=== PATIENT | male | born 1965 | race Two or more races ===

== ENCOUNTER 2017-02-25 22:12 | Inpatient (IN) | payer MEDICAID ==
[~2017-02-25] VITALS: Ht 167.6 cm; Wt 89.8 kg
[2017-02-25 23:41] LABS: Basophils # (auto) 0 uL; Basophils % (auto) 0.5 % (0.0-2.0); Eosinophils # (auto) 0.3 uL; Eosinophils % (auto) 3.5 % (0.0-7.0); Hematocrit 46.3 % (41.0-53.0); Hemoglobin 15.2 g/dL (13.5-17.5); Lymphocytes # (auto) 3.3 uL; Lymphocytes % (auto) 37.7 % (10.0-50.0); Mean Corpuscular Hemoglobin 28.2 pg (28.0-32.0); Mean Corpuscular Hgb Conc. 32.9 g/dL (32.0-36.0); Mean Corpuscular Volume 85.9 fL (80.0-100.0); Mean Platelet Volume 8.8 fL (7.4-10.4); Monocytes # (auto) 0.8 uL; Monocytes % (auto) 8.9 % (0.0-12.0); Neutrophils # (auto) 4.3 uL; Neutrophils % (auto) 49.4 % (37.0-80.0); Platelet Count (auto) 273 10^3/uL (140-450); Red Cell Distribution Width 12.4 % (11.6-16.0); White Blood Cell 8.8 10^3/uL (4.4-10.8)
[2017-02-26 00:02] LABS: INR 0.99 (0.9-1.15); Partial Thromboplastin Time 27.9 sec (22.64-33.71); Prothrombin Time 10.7 sec (9.37-12.3)
[2017-02-26 00:41] LABS: Chloride 104 mmol/L (98-107); Potassium 3.9 mmol/L (3.5-5.1); Sodium 141 mmol/L (136-145)
[2017-02-26 00:42] LABS: Albumin 4.2 g/dL (3.4-5.0); Alkaline Phosphatase 81 U/L (45-117); Anion Gap 8 (5-15); Aspartate Aminotransferase 20 U/L (15-37); BUN/Creatinine Ratio 16.7; Bilirubin, Total 0.5 mg/dL (0.2-1.0); Blood Urea Nitrogen 17 mg/dL (7-18); Calcium 8.7 mg/dL (8.5-10.1); Carbon Dioxide 29 mmol/L (21-32); GFR African American 98 mL/min; GFR Non-African American 81 mL/min; Glucose 106 mg/dL (74-106); Total Protein 7.2 g/dL (6.4-8.2)
[2017-02-26 00:43] LABS: Magnesium 2.5 mg/dL (1.6-2.6)
[2017-02-26] MEDS ORDERED: ASPI-231 PO (04:00)
[2017-02-26] MEDS ORDERED: ASPirin-EC 325mg tab PO ONE (04:00)
[2017-02-26] MEDS ORDERED: NITROGLYCERIN 0.2MG/HR TOPICAL PATCH TD ONE (04:00)
[2017-02-26] MEDS ORDERED: METF-312 PO (04:00)
[2017-02-26] MEDS ORDERED: CLOP75TA28 PO (04:00)
[2017-02-26] MEDS ORDERED: LISI2.5T47 PO (04:00)
[2017-02-26 04:35] LABS: Urine RBC None Seen /hpf (0 - 3)
[2017-02-26 05:36] LABS: Urine Bilirubin Negative (Negative); Urine Blood Negative /uL (Negative); Urine Color Yellow (Yellow); Urine Glucose Normal (Normal); Urine Ketone Negative (Negative); Urine Nitrite Negative (Negative); Urine Urobilinogen Normal (Negative); Urine pH 5.5 (5.0-8.0)
[2017-02-26] MEDS ORDERED: DEXTROSE (50%) 50ML SYRG IV PRN (08:45)
[2017-02-26] MEDS ORDERED: LORazepam 0.5 MG TAB PO PRN (08:45)
[2017-02-26] MEDS ORDERED: MORPHINE SULF INJ 2 MG/ML SYRINGE 1ML IV PRN ×2 (08:45)
[2017-02-26] MEDS ORDERED: LACTULOSE 20Gm/30ML SOLN PO PRN (08:45)
[2017-02-26] MEDS ORDERED: TEMAZEPAM 15 MG CAP PO PRN (08:45)
[2017-02-26] MEDS ORDERED: NITROGLYCERIN 0.4 MG SL TAB SL PRN (08:45)
[2017-02-26] MEDS ORDERED: HYDROcodone-ACET 5/325MG TAB PO PRN (08:45)
[2017-02-26] MEDS ORDERED: ACETAMINOPHEN 500 MG TAB PO PRN (08:45)
[2017-02-26] MEDS ORDERED: PROCHLORPERAZINE EDISYLATE 5 MG/ML 2ML VIAL IV PRN (08:45)
[2017-02-26] MEDS: NITROGLYCERIN 0.2MG/HR TOPICAL PATCH TD SCH (09:52)
[2017-02-26] MEDS ORDERED: ENOXAPARIN SOD 40 MG/0.4 ML SYRINGE SC SCH (10:00)
[2017-02-26] MEDS ORDERED: LISINOPRIL 5 MG TAB PO SCH (10:00)
[2017-02-26] MEDS ORDERED: LISINOPRIL PO SCH (10:00)
[2017-02-26] MEDS: PANTOPRAZOLE 40 MG TAB PO SCH (10:30)
[2017-02-26] MEDS: SODIUM CHLORIDE 0.9% 1,000 ML IV SCH ×2 (10:30→23:08)
[2017-02-26] MEDS: CLOPIDOGREL BISULFATE 75 MG TAB PO SCH (10:30)
[2017-02-26] MEDS: ASPirin-EC 81 mg tab PO SCH (10:30)
[2017-02-26] MEDS: LISINOPRIL 5 MG TAB PO SCH (10:30)
[2017-02-26] MEDS: ACCU-CHEK COMFORT CURVE STRIP VI SCH ×3 (11:47→22:58)
[2017-02-26] MEDS: InsuLIN REG 1unit/0.01ml Soln (100units/ml) SC SCH ×3 (11:49→22:58)
[2017-02-26] MEDS ORDERED: CARV3.1240 PO (18:18)
[2017-02-26 20:00] VITALS: BP 105/58
[2017-02-26 21:59] VITALS: BP 105/58
[2017-02-26] MEDS: ATORVASTATIN 20 MG TAB PO SCH (22:58)
[2017-02-27 05:08] VITALS: BP 112/61
[2017-02-27] MEDS: ACCU-CHEK COMFORT CURVE STRIP VI SCH ×4 (05:58→22:09)
[2017-02-27] MEDS: InsuLIN REG 1unit/0.01ml Soln (100units/ml) SC SCH ×4 (05:58→22:00)
[2017-02-27 08:29] LABS: Albumin 3.7 g/dL (3.4-5.0); BUN/Creatinine Ratio 13.8; Bilirubin, Total 1.1 mg/dL (0.2-1.0); Calcium 9.1 mg/dL (8.5-10.1); Potassium 3.9 mmol/L (3.5-5.1)
[2017-02-27 09:17] VITALS: BP 112/72
[2017-02-27] MEDS: NITROGLYCERIN 0.2MG/HR TOPICAL PATCH TD SCH (10:00)
[2017-02-27] MEDS: ASPirin-EC 81 mg tab PO SCH (10:00)
[2017-02-27] MEDS: LISINOPRIL 5 MG TAB PO SCH (10:00)
[2017-02-27] MEDS: PANTOPRAZOLE 40 MG TAB PO SCH (10:00)
[2017-02-27] MEDS: CLOPIDOGREL BISULFATE 75 MG TAB PO SCH (10:00)
[2017-02-27] MEDS: SODIUM CHLORIDE 0.9% 1,000 ML IV SCH ×2 (11:21→22:14)
[2017-02-27 14:01] VITALS: BP 122/66
[2017-02-27 17:00] VITALS: BP 116/78
[2017-02-27 22:00] VITALS: BP 116/70
[2017-02-27] MEDS: ATORVASTATIN 20 MG TAB PO SCH (22:09)
[2017-02-28 05:00] VITALS: BP 115/74
[2017-02-28] MEDS: InsuLIN REG 1unit/0.01ml Soln (100units/ml) SC SCH (06:25)
[2017-02-28] MEDS: ACCU-CHEK COMFORT CURVE STRIP VI SCH (06:25)
[2017-02-28 09:06] VITALS: BP 110/59
[2017-02-28 09:09] VITALS: BP 110/59
[2017-02-28] MEDS: NITROGLYCERIN 0.2MG/HR TOPICAL PATCH TD SCH (10:00)
[2017-02-28] MEDS: PANTOPRAZOLE 40 MG TAB PO SCH (10:11)
[2017-02-28] MEDS: LISINOPRIL 5 MG TAB PO SCH (10:11)
[2017-02-28] MEDS: CLOPIDOGREL BISULFATE 75 MG TAB PO SCH (10:11)
[2017-02-28] MEDS: ASPirin-EC 81 mg tab PO SCH (10:11)
== END 2017-02-28 10:25 | disposition home or self-care (01) | DRG 198 ==
LOC: ER 22:18 → EDBD 22:19 → TELE 22:19 → TELE-E-ADS 02-26 13:53 → TELE-EAST 02-26 17:29
PROVIDERS: ADMIT Internal Medicine; ATTEND Internal Medicine
DX: R07.89 Other chest pain (principal); I25.2 Old myocardial infarction; I31.9 Disease of pericardium, unspecified; I10 Essential (primary) hypertension; I25.10 Atherosclerotic heart disease of native coronary artery without angina pectoris; R00.1 Bradycardia, unspecified; E11.9 Type 2 diabetes mellitus without complications; E78.5 Hyperlipidemia, unspecified; Z79.02 Long term (current) use of antithrombotics/antiplatelets; Z95.5 Presence of coronary angioplasty implant and graft
CPT/HCPCS: 36415; 71010; 78452; 80053; 80061; 80307; 81001; 82550; 82962; 83036; 83735; 84484; 85025; 85379; 85610; 85652; 85730; 86141; 93005; 93017; 94761; J1815